=== PATIENT | female | born 1960 | race Caucasian/White ===

== ENCOUNTER 2016-12-09 12:16 | Emergency (ER) | payer MEDICAID ==
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
[2016-12-09 13:29] VITALS: BP 125/77
== END 2016-12-09 13:55 | disposition home or self-care (01) ==
LOC: ER 12:16
DX: S80.01XA Contusion of right knee, initial encounter (principal); F17.210 Nicotine dependence, cigarettes, uncomplicated; W00.9XXA Unspecified fall due to ice and snow, initial encounter

== ENCOUNTER 2017-10-25 08:51 | Emergency (ER) | payer MEDICAID ==
[2017-10-25 09:00] VITALS: BP 138/78
[2017-10-25] MEDS ORDERED: KETOROLAC TROMETHAMINE 60 MG/2 ML VIAL IM ONE ×2 (09:08→09:10)
--- NOTE | 2017-10-25 09:31 | ERNOTE ---
Back Pain ER HPI Presenting Symptoms: injury/pain to back - patient is leaning over the couch using the left side of her chest as a lever and had a sudden sharp fairly severe pain in that area, now has difficulty with movement and taking a deep breath Time Seen by Provider: 10/25/17 08:59 Exam Limitations: no limitations Immunizations: IMMUNIZATION HX Immunizations Up to Date Yes History of Influenza Vaccine No Hx Pneumococcal Vaccination No Allergies/Adverse Reactions: Allergies ondansetron HCl [From Zofran (as hydrochloride)] Adverse Reaction (Mild, Verified 10/25/17 09:00) N/V Home Medications: HOME MEDICATIONS Acetaminophen [Tylenol] 650 mg PO QID PRN 03/04/14 [Last Taken 01/24/15] Meclizine HCl 25 mg PO TID #30 tab.chew 05/03/15 [Last Taken Unknown] Potassium Chloride [K-Dur] 40 meq PO TID #90 tablet.sa 04/11/16 [Last Taken Unknown] Albuterol Sulfate [Ventolin HFA] 2 puff IH Q6H PRN 7 Days inhaler 10/15/16 [ Last Taken Unknown] Naproxen [Naprosyn] 500 mg PO BID PRN #60 tab 12/09/16 [Last Taken Unknown] Cyclobenzaprine HCl [Flexeril] 10 mg PO TID PRN #30 tab 10/25/17 [Last Taken Unknown] Naproxen [Naprosyn] 500 mg PO BID #60 tablet 10/25/17 [Last Taken Unknown] traMADol HCL [Ultram] 50 mg PO QID PRN #20 tablet 10/25/17 [Last Taken Unknown] Narrative: Injury as described above, she rates the pain as moderate to severe in severity Timing: Reports: constant Quality/Severity: Reports: moderate, severe Location of pain: Reports: other - left lateral chest Activities at Onset: Reports: other - as noted Recent Injury?: Reports: yes Possible Precipitating Factor: Reports: none - nothing specific Modifying Factors - (Improves): Reports: nothing Modifying Factors - (Worsens): Reports: movement to right, movement to left, movement flexion, cough/deep breaths Associated Symptoms: Reports: none Review of Systems - Review of Systems Constitutional: Present: See HPI EYE: Present: no symptoms reported ENT: Present: no symptoms reported Respiratory: Present: no symptoms reported Cardiology: Present: no symptoms reported, chest pain Gastrointestinal/Abdominal: Present: no symptoms reported Genitourinary: Present: no symptoms reported Musculoskeletal: Present: no symptoms reported Skin: Present: no symptoms reported Neurological: Present: no symptoms reported Endocrine: Present: no symptoms reported Hematologic/Lymphatic: Present: no symptoms reported Psych: Present: no symptoms reported - Patient's Past Medical History Patient History - Medical: Kidney stone Patient History - Cardiac/Respiratory: Hyperlipidemia Patient History - Cancer: No Hx of Cancer Patient History - Surgical Procedures: Colonoscopy, Tubal Ligation, Other Patient History - Other: None - Family History Brother Family History - Medical: Diabetes Type 2 Father Family History - Medical: , Alzheimer's Disease, Arthritis, Diabetes Type 2 Family History - Cardiac/Respiratory: Coronary Heart Disease, Hypertension Grandfather-Maternal Family History - Medical: Family History - Cardiac/Respiratory: Myocardial Infarction Grandfather-Paternal Family History - Medical: Family History - Cardiac/Respiratory: Myocardial Infarction Grandmother-Maternal Family History - Medical: Mother Family History - Medical: , Diabetes Type 2 Family History - Cardiac/Respiratory: Hypertension Sister Family History - Medical: Diabetes Type 2, Seizures Family History - Cardiac/Respiratory: No pertinent hx aunt Family History - Medical: - Social History Living Situations: home Abuse History: No History of abuse Psych History: No pertinent hx Smoking Status: Current every day smoker Alcohol Use: none Drug Use: none - Immunizations Immunizations Up to Date: Yes Hx Pneumococcal Vaccination: No History of Influenza Vaccine: No Physical Exam - Physical Exam General Appearance: Present: wd/wn, alert, moderate distress Head Exam: Present: normal inspection Eye Exam: Normal inspection: bilateral, PERRL: bilateral Ears, Nose, Throat: Present: normal ENT inspection, H, normal pharynx Neck: Present: normal inspection, nontender Respiratory: Present: no respiratory distress, normal breath sounds, no accessory muscle use, lungs clear, chest tenderness - left lateral inferior chest wall, other - patient splinting to a certain degree with deep breath Cardiovascular/Chest: Present: regular rate, rhythm, no murmur, normal peripheral pulses Gastrointestinal/Abdominal: Present: normal bowel sounds, nontender, nondistended, soft, no organomegaly Rectal Exam: Present: deferred Back Exam: Present: normal inspection, normal range of motion Extremity Exam: Present: normal inspection, non-tender, no edema, normal range of motion Neurological Exam: Present: alert, oriented, normal mood/affect Skin Exam: Present: normal color, warm/dry Lymphatic Exam: Present: no adenopathy ED Progress - Vital Signs Patient's Vital Signs:: I have reviewed the patient's vital signs. Vital Signs: Vital Signs 10/25/17 08:56 Temperature 36.2 C L Pulse Rate 87 Respiratory 12 Rate Blood Pressure 138/78 O2 Sat by Pulse 99 Oximetry - X-Ray X-Ray #1 X-Ray: chest Interpretation: Reviewed by me X-Ray #2 X-Ray: ribs Interpretation: Reviewed by me - Progress/Reassessment Chief Complaint: Back Pain Plan - Plan Plan: No overt fracture is seen on the rib x-rays, neither does it appear to be any pneumothorax. While occult fracture is possible, at this point I believe we'll just treat the inflammation and the muscle spasm and have her follow-up with her family physician next week. Departure Clinical Impression: Chest wall pain - Departure Disposition: Home self-care Condition: Good Instructions: Chest Wall Pain, [id number] Prescriptions: Cyclobenzaprine HCl [Flexeril] 10 mg PO TID PRN #30 tab PRN Reason: MUSCLE SPASMS Naproxen [Naprosyn] 500 mg PO BID #60 tablet traMADol HCL [Ultram] 50 mg PO QID PRN #20 tablet PRN Reason: Moderate Pain
== END 2017-10-25 09:43 | disposition home or self-care (01) ==
LOC: ER 08:51
DX: R07.89 Other chest pain (principal); E78.5 Hyperlipidemia, unspecified; F17.200 Nicotine dependence, unspecified, uncomplicated